=== PATIENT | female | born 1970 | race Caucasian/White ===

== ENCOUNTER 2021-02-19 16:08 | Observation (INO) ==
[2021-02-19] MEDS ORDERED: Aspirin 81 MG TAB.CHEW PO ONE (16:16)
[2021-02-19] MEDS ORDERED: Ondansetron 4 MG/2 ML VIAL IVP ONE (16:34)
[2021-02-19] MEDS ORDERED: Morphine Sulfate 2 MG/ML SYRINGE IVP ONE (16:34)
[2021-02-19 16:44] LABS: Bilirubin,Urine Negative (Negative); Blood,Urine Negative (Negative); Clarity,Urine Clear (Clear); Color,Urine Colorless (Yellow); Glucose,Urine (UA) Normal (Normal); Ketones,Urine Negative (Negative); Leukocyte Esterase,Urine Negative (Negative); Nitrite,Urine Negative (Negative); PH,Urine 6.5 pH Units (5.0-8.0); Protein,Urine Negative (Neg-Trace); Specific Gravity,Urine < 1.005 (1.010-1.025); Urobilinogen,Urine Normal (Normal)
[2021-02-19 17:31] LABS: Basophils # 0.1 K/mcL (0.0-0.2); Basophils % 0.8 %; Eosinophils # 0.2 K/mcL (0.0-0.6); Eosinophils % 1.6 %; Hematocrit 40.6 % (35.3-44.9); Hemoglobin 13.3 g/dL (11.5-15.4); Immature Granulocytes % 0.3 % (0-4); Lymphocytes # 2.4 K/mcL (0.6-4.6); Lymphocytes % 25.4 %; Mean Corpuscular HGB Conc 32.8 g/dL (31.6-35.5); Mean Corpuscular Hemoglobin 32.7 pg (28.0-33.3); Mean Corpuscular Volume 99.8 fL (83.0-100.0); Mean Platelet Volume 10.5 fL (9.4-12.4); Monocytes # 0.5 K/mcL (0.0-1.3); Monocytes % 5.3 %; Neutrophils # 6.2 K/mcL (1.6-8.9); Platelet Count 243 K/mcL (140-400); Red Blood Count 4.07 M/mcL (3.82-4.97); Red Cell Distribution Width 13.5 % (11.5-14.5); Segmented Neutrophils % 66.6 %; White Blood Count 9.3 K/mcL (4.3-11.1)
[2021-02-19 17:41] LABS: BUN/Creatinine Ratio 13 (6-26); Blood Urea Nitrogen 9 mg/dL (6-20); Calcium 8.7 mg/dL (8.6-10.3); Carbon Dioxide 29 mEq/L (23-29); Chloride 100 mEq/L (98-107); Glucose 84 mg/dL (70-105); Osmolality,Calculated 284 (280-300); Sodium 138 mEq/L (136-145); eGFR For African Americans > 60 (> 60); eGFR For Non-African Americans > 60 (> 60)
[2021-02-19 17:42] LABS: Troponin I < 0.03 ng/mL (< 0.04)
[2021-02-19] MEDS ORDERED: Isovue-370 500 ML BOTTLE IVP ONE (17:56)
[2021-02-19] MEDS ORDERED: Nitroglycerin 0.4 MG TAB.SUBL SL PRN (21:24)
[2021-02-20] MEDS ORDERED: Melatonin 3 MG TABLET PO PRN (01:42)
[2021-02-20] MEDS ORDERED: Naloxone 0.4 MG/ML INJ IVP PRN (01:42)
[2021-02-20] MEDS ORDERED: Nitroglycerin 0.4 MG TAB.SUBL SL PRN (04:20)
[2021-02-20] MEDS ORDERED: Perflutren Lipid Microsphere 1.3 ML in 0.9 % Sodium Chloride 8.7 ML IVP PRN (04:23)
[2021-02-20] MEDS: Aspirin 81 MG TAB.CHEW PO SCH (08:39)
[2021-02-20 10:14] LABS: Chol/HDL Ratio 3.6 (0-4.9)
[2021-02-20 11:13] LABS: Estimated Average Glucose 114 mg/dl; Hemoglobin A1C 5.6 %
[2021-02-20] MEDS ORDERED: Acetaminophen 325 MG TABLET PO ONE (11:16)
[2021-02-20] MEDS ORDERED: Cholestyramine 4 GM POWD.PACK PO PRN (12:49)
[2021-02-20] MEDS: Sucralfate 1 GM TABLET PO SCH ×3 (15:14→19:58)
[2021-02-20] MEDS: Ranolazine 500 MG TAB.ER.12H PO SCH ×2 (15:14→19:58)
[2021-02-20] MEDS ORDERED: CARVEDILOL 3.125 MG PO SCH (17:00)
[2021-02-20] MEDS ORDERED: carvediloL 6.25 MG TABLET PO SCH (17:00)
[2021-02-20] MEDS: Ondansetron 4 MG/2 ML VIAL IVP PRN (17:35)
[2021-02-20] MEDS: Pregabalin 75 MG CAPSULE PO SCH (19:58)
[2021-02-20] MEDS: Morphine Sulfate 2 MG/ML SYRINGE IVP PRN (20:01)
[2021-02-20] MEDS: Budesonide/Formoterol 160/4.5 1 PUFF INH IH SCH (20:13)
[2021-02-20] MEDS ORDERED: (Cariprazine Hcl [Vraylar] 3 MG Capsule) PO SCH (21:00)
[2021-02-21] MEDS: Ondansetron 4 MG/2 ML VIAL IVP PRN ×2 (01:35→09:18)
[2021-02-21] MEDS: Morphine Sulfate 2 MG/ML SYRINGE IVP PRN ×2 (01:36→11:00)
[2021-02-21] MEDS ORDERED: Regadenoson 0.4 MG/5 ML SYRINGE IVP ONE (06:28)
[2021-02-21] MEDS ORDERED: NON-FORMULARY MEDICATION 1 EACH EACH (Duloxetine Hcl [Cymbalta] 60 MG Capsule.Dr) PO SCH (09:00)
[2021-02-21] MEDS ORDERED: Isosorbide MONOnitrate (24 HR) 30 MG TAB.ER.24H PO SCH (09:00)
[2021-02-21] MEDS: Aspirin 81 MG TAB.CHEW PO SCH (09:15)
[2021-02-21] MEDS: Ranolazine 500 MG TAB.ER.12H PO SCH (09:16)
[2021-02-21] MEDS: Pregabalin 75 MG CAPSULE PO SCH (09:16)
[2021-02-21] MEDS: Sucralfate 1 GM TABLET PO SCH (09:16)
[2021-02-21] MEDS ORDERED: Tiotropium 10 INH DOSE IH SCH (10:00)
[2021-02-21] MEDS: Budesonide/Formoterol 160/4.5 1 PUFF INH IH SCH (10:43)
[2021-02-21 11:00] VITALS: BP 101/69
== END 2021-02-21 13:07 | disposition home or self-care (01) ==
LOC: 3BNU 16:08 → EMEROOARM 16:08 → SUATTDRO 02-20 00:55 → 3BNU 02-20 01:47
PROVIDERS: ADMIT Family Medicine; ATTEND Internal Medicine

== ENCOUNTER 2021-02-25 21:20 | Observation (INO) ==
[2021-02-25 23:06] LABS: Basophils # 0.1 K/mcL (0.0-0.2); Basophils % 0.7 %; Eosinophils # 0.2 K/mcL (0.0-0.6); Eosinophils % 2.2 %; Hematocrit 37.9 % (35.3-44.9); Hemoglobin 12.3 g/dL (11.5-15.4); Immature Granulocytes % 0.4 % (0-4); Lymphocytes # 2.5 K/mcL (0.6-4.6); Lymphocytes % 35.9 %; Mean Corpuscular HGB Conc 32.5 g/dL (31.6-35.5); Mean Corpuscular Hemoglobin 32.5 pg (28.0-33.3); Mean Platelet Volume 10.3 fL (9.4-12.4); Monocytes # 0.5 K/mcL (0.0-1.3); Monocytes % 7.4 %; Neutrophils # 3.7 K/mcL (1.6-8.9); Platelet Count 206 K/mcL (140-400); Red Blood Count 3.79 M/mcL (3.82-4.97); Segmented Neutrophils % 53.4 %; White Blood Count 6.9 K/mcL (4.3-11.1)
[2021-02-25 23:22] LABS: BUN/Creatinine Ratio 13 (6-26); Blood Urea Nitrogen 7 mg/dL (6-20); Calcium 8.5 mg/dL (8.6-10.3); Carbon Dioxide 27 mEq/L (23-29); Chloride 103 mEq/L (98-107); Glucose 97 mg/dL (70-105); Osmolality,Calculated 284 (280-300); Potassium 3.7 mEq/L (3.5-5.1); Sodium 138 mEq/L (136-145); eGFR For African Americans > 60 (> 60); eGFR For Non-African Americans > 60 (> 60)
[2021-02-25 23:23] LABS: Troponin I < 0.03 ng/mL (< 0.04)
[2021-02-25] MEDS ORDERED: Aspirin 81 MG TAB.CHEW PO ONE ×2 (23:27→23:45)
[2021-02-26] MEDS ORDERED: *HR* FentaNYL (PF) 100 MCG/2 ML VIAL IVP ONE (00:37)
[2021-02-26 00:51] LABS: Adenovirus Not Detected (Not Detect); Coronavirus 229E Not Detected (Not Detect); Coronavirus HKU1 Not Detected (Not Detect); Coronavirus NL63 Not Detected (Not Detect); Coronavirus OC43 Not Detected (Not Detect)
[2021-02-26 00:52] LABS: Bordetella Pertussis Not Detected (Not Detect); Chlamydophila pneumoniae Not Detected (Not Detect); Human Metapneumovirus Not Detected (Not Detect); Human Rhinovirus/Enterovirus Not Detected (Not Detect); Influenza A Subtype 2009 H1 Not Detected (Not Detect); Influenza B Not Detected (Not Detect); Mycoplasma pneumoniae Not Detected (Not Detect); Parainfluenza Virus 1 Not Detected (Not Detect); Parainfluenza Virus 2 Not Detected (Not Detect); Parainfluenza Virus 3 Not Detected (Not Detect); Parainfluenza Virus 4 Not Detected (Not Detect); Respiratory Syncytial Virus Not Detected (Not Detect); SARS-CoV-2 Not Detected (Not Detect)
[2021-02-26 03:10] LABS: Thyroid Stimulating Hormone 1.443 mcIU/mL (0.340-5.600)
[2021-02-26] MEDS ORDERED: Naloxone 0.4 MG/ML INJ IVP PRN (03:22)
[2021-02-26] MEDS ORDERED: Morphine Sulfate 2 MG/ML SYRINGE IVP PRN (03:25)
[2021-02-26] MEDS ORDERED: Nitroglycerin 0.4 MG TAB.SUBL SL PRN (03:25)
[2021-02-26] MEDS ORDERED: Calcium Gluconate 1gm/50mL 1 GM/50 ML BAG IVPB ONE (04:28)
[2021-02-26] MEDS: *HR* Heparin 5,000 UNIT/ML VIAL SQ SCH ×3 (05:59→20:31)
[2021-02-26 06:05] LABS: Estimated Average Glucose 111 mg/dl; Hemoglobin A1C 5.5 %; Mean Corpuscular HGB Conc 31.6 g/dL (31.6-35.5); Mean Corpuscular Hemoglobin 31.7 pg (28.0-33.3); Mean Corpuscular Volume 100.5 fL (83.0-100.0); Mean Platelet Volume 10.3 fL (9.4-12.4); Platelet Count 219 K/mcL (140-400); Red Blood Count 3.78 M/mcL (3.82-4.97); Red Cell Distribution Width 13.2 % (11.5-14.5); White Blood Count 6.1 K/mcL (4.3-11.1)
[2021-02-26 06:14] LABS: Prothrombin Time 11.2 Seconds (9.4-12.1)
[2021-02-26 06:17] LABS: Activated Partial Thrombo Time 28.2 Seconds (26.0-36.0)
[2021-02-26 06:28] LABS: BUN/Creatinine Ratio 14 (6-26); Blood Urea Nitrogen 8 mg/dL (6-20); Calcium 8.7 mg/dL (8.6-10.3); Carbon Dioxide 31 mEq/L (23-29); Chloride 105 mEq/L (98-107); Chol/HDL Ratio 3.6 (0-4.9); Cholesterol 200 mg/dL (< 200); Glucose 100 mg/dL (70-105); HDL Cholesterol 55 mg/dL (40-59); LDL Cholesterol,Calculated 123 mg/dL (< 100); Magnesium 1.8 mg/dL (1.6-2.6); Osmolality,Calculated 290 (280-300); Sodium 141 mEq/L (136-145); Triglycerides 108 mg/dL (< 150); eGFR For African Americans > 60 (> 60); eGFR For Non-African Americans > 60 (> 60)
[2021-02-26] MEDS: Aspirin Enteric Coated 81 MG Tablet PO SCH ×2 (07:43→08:34)
[2021-02-26] MEDS: Isosorbide MONOnitrate (24 HR) 30 MG TAB.ER.24H PO SCH (10:53)
[2021-02-26] MEDS ORDERED: Morphine Sulfate 2 MG/ML SYRINGE IVP ONE (15:48)
[2021-02-26] MEDS ORDERED: Cholestyramine 4 GM POWD.PACK PO PRN (17:58)
[2021-02-26] MEDS ORDERED: Ipratropium/Albuterol Neb 3 ML IH PRN (17:58)
[2021-02-26] MEDS: Sucralfate 1 GM TABLET PO SCH (20:30)
[2021-02-26] MEDS: Pregabalin 75 MG CAPSULE PO SCH (20:30)
[2021-02-26] MEDS: Ondansetron 4 MG/2 ML VIAL IVP PRN (20:34)
[2021-02-26] MEDS: Acetaminophen 325 MG TABLET PO PRN (20:34)
[2021-02-26] MEDS ORDERED: (Cariprazine Hcl [Vraylar] 3 MG Capsule) PO SCH (21:00)
[2021-02-26] MEDS ORDERED: Latanoprost 2.5 ML BOTTLE BOTH EYES SCH (21:00)
[2021-02-26] MEDS: Budesonide/Formoterol 160/4.5 1 PUFF INH IH SCH (21:09)
[2021-02-27 02:44] LABS: Hematocrit 40.4 % (35.3-44.9); Hemoglobin 12.8 g/dL (11.5-15.4); Mean Corpuscular HGB Conc 31.7 g/dL (31.6-35.5); Mean Corpuscular Hemoglobin 31.9 pg (28.0-33.3); Mean Corpuscular Volume 100.7 fL (83.0-100.0); Mean Platelet Volume 10.2 fL (9.4-12.4); Platelet Count 211 K/mcL (140-400); Red Blood Count 4.01 M/mcL (3.82-4.97); Red Cell Distribution Width 13.6 % (11.5-14.5); White Blood Count 5.5 K/mcL (4.3-11.1)
[2021-02-27 03:05] LABS: BUN/Creatinine Ratio 18 (6-26); Blood Urea Nitrogen 10 mg/dL (6-20); Carbon Dioxide 31 mEq/L (23-29); Chloride 102 mEq/L (98-107); Glucose 99 mg/dL (70-105); Osmolality,Calculated 289 (280-300); Potassium 3.9 mEq/L (3.5-5.1); Sodium 140 mEq/L (136-145); eGFR For African Americans > 60 (> 60); eGFR For Non-African Americans > 60 (> 60)
[2021-02-27] MEDS: *HR* Heparin 5,000 UNIT/ML VIAL SQ SCH (05:39)
[2021-02-27] MEDS: Ondansetron 4 MG/2 ML VIAL IVP PRN ×2 (06:14→12:52)
[2021-02-27] MEDS ORDERED: Tiotropium 10 INH DOSE IH ONE (07:33)
[2021-02-27] MEDS: Budesonide/Formoterol 160/4.5 1 PUFF INH IH SCH (07:44)
[2021-02-27] MEDS ORDERED: Multivit/Ca/Min/Fe/FA 1 TAB TABLET PO SCH (09:00)
[2021-02-27] MEDS ORDERED: NON-FORMULARY MEDICATION 1 EACH EACH (Duloxetine Hcl [Cymbalta] 60 MG Capsule.Dr) PO SCH (09:00)
[2021-02-27] MEDS ORDERED: Tiotropium 10 INH DOSE IH SCH (10:00)
[2021-02-27 10:14] VITALS: BP 94/67; O2SAT 97
[2021-02-27] MEDS: Pregabalin 75 MG CAPSULE PO SCH (10:18)
[2021-02-27] MEDS: Sucralfate 1 GM TABLET PO SCH ×2 (10:18→12:52)
[2021-02-27] MEDS: Aspirin Enteric Coated 81 MG Tablet PO SCH (10:19)
[2021-02-27] MEDS: Acetaminophen 325 MG TABLET PO PRN (10:19)
[2021-02-27] MEDS: Isosorbide MONOnitrate (24 HR) 30 MG TAB.ER.24H PO SCH (10:19)
[2021-02-27 15:14] VITALS: PULSE 95; TEMP 97.7
== END 2021-02-27 16:06 | disposition home or self-care (01) ==
LOC: EMEROOARM 21:20 → 2NENU 21:20 → SUATTDRO 02-26 01:28 → 2NENU 02-26 02:00
PROVIDERS: ADMIT Internal Medicine; ATTEND Family Medicine

== ENCOUNTER 2021-12-13 22:01 | Observation (INO) ==
[2021-12-13] MEDS ORDERED: Ondansetron 4 MG/2 ML VIAL IVP ONE (22:23)
[2021-12-13] MEDS ORDERED: Aspirin 81 MG TAB.CHEW PO ONE (22:23)
[2021-12-13] MEDS ORDERED: *HR* FentaNYL (PF) 100 MCG/2 ML VIAL IVP ONE (22:24)
[2021-12-13] MEDS ORDERED: *HR* Ticagrelor 90 MG TABLET PO ONE (22:38)
[2021-12-13] MEDS ORDERED: *HR* Heparin 5,000 UNIT/ML VIAL IVP ONE (22:38)
[2021-12-13] MEDS ORDERED: *HR* Heparin 5,000 UNIT/ML VIAL IVP PRN ×2 (22:38)
[2021-12-13 22:40] LABS: Basophils # 0.1 K/mcL (0.0-0.2); Basophils % 0.8 %; Eosinophils # 0.1 K/mcL (0.0-0.6); Eosinophils % 2.2 %; Hemoglobin 12.7 g/dL (11.5-15.4); Immature Granulocytes % 0.2 % (0-4); Lymphocytes # 2.3 K/mcL (0.6-4.6); Lymphocytes % 38.4 %; Mean Corpuscular HGB Conc 33.4 g/dL (31.6-35.5); Mean Corpuscular Hemoglobin 31.7 pg (28.0-33.3); Mean Corpuscular Volume 94.8 fL (83.0-100.0); Mean Platelet Volume 11.2 fL (9.4-12.4); Monocytes # 0.5 K/mcL (0.0-1.3); Monocytes % 8.3 %; Platelet Count 216 K/mcL (140-400); Red Blood Count 4.01 M/mcL (3.82-4.97); Red Cell Distribution Width 12.7 % (11.5-14.5); Segmented Neutrophils % 50.1 %
[2021-12-13] MEDS ORDERED: Heparin 25,000UNIT/250ML 1/2NS 25,000 UNIT/250 ML IV.SOLN IVC SCH (22:45)
[2021-12-13 22:52] LABS: Prothrombin Time 11.1 Seconds (9.4-12.1)
[2021-12-13 22:54] LABS: Activated Partial Thrombo Time 32.1 Seconds (26.0-36.0)
[2021-12-13] MEDS ORDERED: *HR* Heparin 10,000 UNIT/10 ML VIAL ONE (22:59)
[2021-12-13] MEDS ORDERED: ISOVUE-370 200 ML INFUS..BTL ONE (22:59)
[2021-12-13] MEDS ORDERED: Nitroglycerin 1,000 MCG/5 ML VIAL IV ONE (22:59)
[2021-12-13] MEDS ORDERED: Heparin 1,000 UNITS/500 mL 500 ML ONE (22:59)
[2021-12-13] MEDS ORDERED: 0.9 % Sodium Chloride 1,000 ML ONE ×2 (22:59→23:04)
[2021-12-13 23:02] LABS: BUN/Creatinine Ratio 11 (6-26); Blood Urea Nitrogen 7 mg/dL (6-20); Calcium 9.3 mg/dL (8.6-10.3); Carbon Dioxide 30 mEq/L (23-29); Chloride 102 mEq/L (98-107); Glucose 97 mg/dL (70-105); Lipase 34 Units/L (11-82); Magnesium 1.5 mg/dL (1.6-2.6); Osmolality,Calculated 288 (280-300); Potassium 3.2 mEq/L (3.5-5.1); Sodium 140 mEq/L (136-145); eGFR For African Americans > 60 (> 60); eGFR For Non-African Americans > 60 (> 60)
[2021-12-13 23:03] LABS: Troponin I < 0.03 ng/mL (< 0.04)
[2021-12-13] MEDS ORDERED: *HR* Midazolam HCl 2 MG/2 ML VIAL ONE (23:03)
[2021-12-13] MEDS ORDERED: *HR* FentaNYL (PF) 100 MCG/2 ML VIAL ONE (23:03)
[2021-12-13] MEDS ORDERED: *HR* Bivalirudin 250 MG VIAL IVC ONE (23:03)
[2021-12-14] MEDS ORDERED: Acetaminophen 325 MG TABLET PO PRN (00:40)
[2021-12-14] MEDS ORDERED: Naloxone 0.4 MG/ML INJ IVP PRN (01:12)
[2021-12-14] MEDS ORDERED: Melatonin 3 MG TABLET PO PRN (01:12)
[2021-12-14] MEDS ORDERED: Ondansetron 4 MG/2 ML VIAL IVP PRN (01:12)
[2021-12-14] MEDS ORDERED: Albuterol 2.5 MG/3 ML NEBULIZER IH PRN (02:10)
[2021-12-14] MEDS ORDERED: Ipratropium/Albuterol Neb 3 ML IH SCH (05:00)
[2021-12-14] MEDS ORDERED: Magnesium Oxide 400 MG TABLET PO ONE (05:00)
[2021-12-14 05:14] LABS: Basophils % 0.7 %; Eosinophils # 0.1 K/mcL (0.0-0.6); Eosinophils % 2.2 %; Hematocrit 39.7 % (35.3-44.9); Lymphocytes # 1.6 K/mcL (0.6-4.6); Lymphocytes % 34.3 %; Mean Corpuscular HGB Conc 32.7 g/dL (31.6-35.5); Mean Corpuscular Hemoglobin 31.6 pg (28.0-33.3); Mean Corpuscular Volume 96.4 fL (83.0-100.0); Mean Platelet Volume 11.3 fL (9.4-12.4); Monocytes # 0.5 K/mcL (0.0-1.3); Neutrophils # 2.4 K/mcL (1.6-8.9); Platelet Count 208 K/mcL (140-400); Red Blood Count 4.12 M/mcL (3.82-4.97); Red Cell Distribution Width 12.7 % (11.5-14.5); Segmented Neutrophils % 52.8 %; White Blood Count 4.6 K/mcL (4.3-11.1)
[2021-12-14 05:46] LABS: Magnesium 1.6 mg/dL (1.6-2.6); Phosphorous 5.2 mg/dL (2.7-4.5)
[2021-12-14 05:48] LABS: Alanine Aminotransferase 21 Units/L (7-52); Albumin 3.8 g/dL (3.5-5.7); Albumin/Globulin Ratio 1.5 (1.1-2.2); Alkaline Phosphatase 71 Units/L (34-104); Aspartate Amino Transferase 21 Units/L (13-39); BUN/Creatinine Ratio 11 (6-26); Bilirubin,Total 0.5 mg/dL (0.3-1.0); Blood Urea Nitrogen 8 mg/dL (6-20); Calcium 9.4 mg/dL (8.6-10.3); Carbon Dioxide 31 mEq/L (23-29); Chloride 104 mEq/L (98-107); Globulin 2.6 g/dL (2.4-3.5); Glucose 91 mg/dL (70-105); Osmolality,Calculated 290 (280-300); Potassium 3.6 mEq/L (3.5-5.1); Sodium 141 mEq/L (136-145); Total Protein 6.4 g/dL (6.4-8.9); eGFR For African Americans > 60 (> 60); eGFR For Non-African Americans > 60 (> 60)
[2021-12-14 06:42] VITALS: BP 112/83; PULSE 92; TEMP 97.9; O2SAT 91
[2021-12-14] MEDS ORDERED: predniSONE 20 MG TABLET PO SCH (09:00)
== END 2021-12-14 10:20 | disposition home or self-care (01) ==
LOC: EMEROOARM 22:01 → 2NENU 22:01 → SUATTDRO 12-14 00:08
PROVIDERS: ADMIT Family Medicine; ATTEND Internal Medicine

== ENCOUNTER 2022-03-09 19:21 | Observation (INO) ==
[2022-03-10] MEDS ORDERED: Iopamidol - 370 500 ML MLS IVP ONE (03:57)
[2022-03-10] MEDS ORDERED: Acetaminophen 325 MG TABLET PO ONE (04:28)
[2022-03-10 04:45] LABS: Basophils # 0.1 K/mcL (0.0-0.2); Basophils % 0.7 %; Eosinophils # 0.1 K/mcL (0.0-0.6); Eosinophils % 1.9 %; Hemoglobin 12.9 g/dL (11.5-15.4); Immature Granulocytes % 0.4 % (0-4); Lymphocytes # 1.6 K/mcL (0.6-4.6); Lymphocytes % 21.9 %; Mean Corpuscular HGB Conc 33.1 g/dL (31.6-35.5); Mean Corpuscular Hemoglobin 31.9 pg (28.0-33.3); Mean Corpuscular Volume 96.3 fL (83.0-100.0); Mean Platelet Volume 10.4 fL (9.4-12.4); Monocytes # 0.4 K/mcL (0.0-1.3); Monocytes % 5.9 %; Neutrophils # 5.2 K/mcL (1.6-8.9); Platelet Count 220 K/mcL (140-400); Red Blood Count 4.05 M/mcL (3.82-4.97); Red Cell Distribution Width 13.2 % (11.5-14.5); Segmented Neutrophils % 69.2 %; White Blood Count 7.4 K/mcL (4.3-11.1)
[2022-03-10 05:01] LABS: BUN/Creatinine Ratio 15 (6-26); Blood Urea Nitrogen 9 mg/dL (6-20); Calcium 8.9 mg/dL (8.6-10.3); Carbon Dioxide 32 mEq/L (23-29); Chloride 101 mEq/L (98-107); Glucose 99 mg/dL (70-105); Osmolality,Calculated 289 (280-300); Potassium 3.3 mEq/L (3.5-5.1); Sodium 140 mEq/L (136-145); eGFR For African Americans > 60 (> 60); eGFR For Non-African Americans > 60 (> 60)
[2022-03-10] MEDS ORDERED: Piperacillin/Tazobactam 3.375 GM in 0.9 % Sodium Chloride Mini Bag 100 ML IVPB ONE (08:06)
[2022-03-10] MEDS ORDERED: Vancomycin 1,500 MG/265 ML IV.SOLN IVPB ONE (09:00)
[2022-03-10] MEDS ORDERED: Morphine Sulfate 2 MG/ML SYRINGE IVP STA (09:09)
[2022-03-10] MEDS ORDERED: *HR* HYDROcodone/Acet 5/325 mg TABLET PO PRN (09:51)
[2022-03-10] MEDS ORDERED: Naloxone 0.4 MG/ML INJ IVP PRN ×2 (09:51→16:56)
[2022-03-10] MEDS ORDERED: *HR* OxyCODONE Immed Rel 5 MG TABLET PO PRN ×2 (09:51→14:40)
[2022-03-10] MEDS ORDERED: Ondansetron 4 MG/2 ML VIAL IVP PRN ×3 (09:51→16:56)
[2022-03-10] MEDS ORDERED: Melatonin 3 MG TABLET PO PRN ×2 (09:51→16:56)
[2022-03-10] MEDS ORDERED: Acetaminophen 325 MG TABLET PO PRN (09:51)
[2022-03-10] MEDS ORDERED: diazePAM 5 MG TABLET PO PRN ×2 (13:38→16:56)
[2022-03-10] MEDS ORDERED: Ipratropium/Albuterol Neb 3 ML IH PRN ×2 (13:38→16:56)
[2022-03-10] MEDS ORDERED: Scopolamine Patch 1.5 MG PATCH.TD72 ONE (14:34)
[2022-03-10] MEDS ORDERED: *HR* Propofol 200 MG/20 ML VIAL IVP ONE (14:38)
[2022-03-10] MEDS ORDERED: *HR* FentaNYL (PF) 100 MCG/2 ML VIAL ONE ×2 (14:38→15:35)
[2022-03-10] MEDS ORDERED: *HR* Midazolam HCl 2 MG/2 ML VIAL ONE (14:38)
[2022-03-10] MEDS ORDERED: Ondansetron 4 MG/2 ML VIAL ONE (14:38)
[2022-03-10] MEDS ORDERED: *HR* Labetalol 20 MG/4 ML SYRINGE IVP PRN (14:40)
[2022-03-10] MEDS ORDERED: *HR* Meperidine 25 MG/ML SYRINGE IVP PRN (14:40)
[2022-03-10] MEDS ORDERED: *HR* HYDROmorphone PF 0.5 MG/0.5 ML SYRINGE IVP PRN (14:40)
[2022-03-10] MEDS ORDERED: Albuterol 2.5 MG/3 ML NEBULIZER IH PRN (14:40)
[2022-03-10] MEDS ORDERED: *HR* FentaNYL (PF) 100 MCG/2 ML VIAL IVP PRN (14:40)
[2022-03-10] MEDS ORDERED: Ipratropium Neb 0.5 MG NEBULIZER IH PRN (14:40)
[2022-03-10] MEDS ORDERED: Lidocaine -MPF 2% 5 ML VIAL ONE (14:40)
[2022-03-10] MEDS ORDERED: Piperacillin/Tazobactam 3.375 GM in 0.9 % Sodium Chloride Mini Bag 100 ML IVPB SCH (16:00)
[2022-03-10] MEDS: Acetaminophen 325 MG TABLET PO PRN (18:48)
[2022-03-10] MEDS: *HR* HYDROcodone/Acet 5/325 mg TABLET PO PRN (19:45)
[2022-03-10] MEDS: Vancomycin 1,500 MG/265 ML IV.SOLN IVPB SCH (20:28)
[2022-03-10] MEDS ORDERED: Vancomycin 1,500 MG/265 ML IV.SOLN IVPB SCH (21:00)
[2022-03-10] MEDS ORDERED: Latanoprost 2.5 ML BOTTLE BOTH EYES SCH (21:00)
[2022-03-10] MEDS: Latanoprost 2.5 ML BOTTLE BOTH EYES SCH (21:25)
[2022-03-10] MEDS: *HR* OxyCODONE Immed Rel 5 MG TABLET PO PRN (22:39)
[2022-03-10] MEDS: PARoxetine 20 MG TABLET PO SCH (22:40)
[2022-03-11 01:40] LABS: Basophils % 0.2 %; Hematocrit 36.9 % (35.3-44.9); Immature Granulocytes % 0.3 % (0-4); Lymphocytes # 0.4 K/mcL (0.6-4.6); Mean Corpuscular HGB Conc 32.5 g/dL (31.6-35.5); Mean Corpuscular Hemoglobin 31.3 pg (28.0-33.3); Mean Corpuscular Volume 96.3 fL (83.0-100.0); Mean Platelet Volume 10.4 fL (9.4-12.4); Monocytes % 0.7 %; Neutrophils # 5.6 K/mcL (1.6-8.9); Platelet Count 223 K/mcL (140-400); Red Blood Count 3.83 M/mcL (3.82-4.97); Red Cell Distribution Width 13.1 % (11.5-14.5); Segmented Neutrophils % 92.8 %
[2022-03-11] MEDS: *HR* HYDROcodone/Acet 5/325 mg TABLET PO PRN ×3 (01:50→22:15)
[2022-03-11 01:57] LABS: BUN/Creatinine Ratio 15 (6-26); Blood Urea Nitrogen 10 mg/dL (6-20); Calcium 8.6 mg/dL (8.6-10.3); Carbon Dioxide 30 mEq/L (23-29); Chloride 99 mEq/L (98-107); Glucose 204 mg/dL (70-105); Osmolality,Calculated 289 (280-300); Potassium 3.5 mEq/L (3.5-5.1); Sodium 137 mEq/L (136-145); eGFR For African Americans > 60 (> 60); eGFR For Non-African Americans > 60 (> 60)
[2022-03-11] MEDS: Acetaminophen 325 MG TABLET PO PRN ×2 (05:03→16:11)
[2022-03-11] MEDS: *HR* OxyCODONE Immed Rel 5 MG TABLET PO PRN ×2 (07:48→16:11)
[2022-03-11] MEDS: Aspirin 81 MG TAB.CHEW PO SCH (07:49)
[2022-03-11] MEDS: Piperacillin/Tazobactam 3.375 GM in 0.9 % Sodium Chloride Mini Bag 100 ML IVPB SCH ×4 (07:49→23:12)
[2022-03-11] MEDS ORDERED: Fluticasone Propionate Nasal 50 MCG/SPRAY BOTTLE NS SCH (09:00)
[2022-03-11] MEDS ORDERED: CARIPRAZINE HCL 1.5 MG PO SCH (09:00)
[2022-03-11] MEDS ORDERED: Aspirin 81 MG TAB.CHEW PO SCH (09:00)
[2022-03-11] MEDS ORDERED: PARoxetine 20 MG TABLET PO SCH (09:00)
[2022-03-11] MEDS: Nicotine 14 MG PATCH.TD24 TD SCH (10:55)
[2022-03-11] MEDS: Morphine Sulfate 2 MG/ML SYRINGE IVP PRN ×2 (10:55→20:08)
[2022-03-11] MEDS: Vancomycin 1,500 MG/265 ML IV.SOLN IVPB SCH ×2 (12:15→21:33)
[2022-03-11] MEDS: Fluticasone Propionate Nasal 50 MCG/SPRAY BOTTLE NS SCH (17:46)
[2022-03-11] MEDS: PARoxetine 20 MG TABLET PO SCH (20:07)
[2022-03-11] MEDS: Latanoprost 2.5 ML BOTTLE BOTH EYES SCH (22:06)
[2022-03-12] MEDS: *HR* OxyCODONE Immed Rel 5 MG TABLET PO PRN ×2 (00:07→10:00)
[2022-03-12] MEDS: Morphine Sulfate 2 MG/ML SYRINGE IVP PRN (02:24)
[2022-03-12 03:47] VITALS: O2SAT 98
[2022-03-12 05:10] LABS: Basophils % 0.4 %; Eosinophils # 0.1 K/mcL (0.0-0.6); Eosinophils % 1.6 %; Hemoglobin 11.7 g/dL (11.5-15.4); Immature Granulocytes % 0.4 % (0-4); Immature Platelets 5.8 % (1.1-6.1); Lymphocytes % 25.3 %; Mean Corpuscular HGB Conc 32.5 g/dL (31.6-35.5); Mean Corpuscular Hemoglobin 31.8 pg (28.0-33.3); Mean Corpuscular Volume 97.8 fL (83.0-100.0); Mean Platelet Volume 10.8 fL (9.4-12.4); Monocytes # 0.5 K/mcL (0.0-1.3); Monocytes % 6.6 %; Neutrophils # 5.1 K/mcL (1.6-8.9); Platelet Count 211 K/mcL (140-400); Red Blood Count 3.68 M/mcL (3.82-4.97); Red Cell Distribution Width 13.5 % (11.5-14.5); Segmented Neutrophils % 65.7 %; White Blood Count 7.7 K/mcL (4.3-11.1)
[2022-03-12 05:23] LABS: BUN/Creatinine Ratio 8 (6-26); Blood Urea Nitrogen 6 mg/dL (6-20); Calcium 8.4 mg/dL (8.6-10.3); Carbon Dioxide 28 mEq/L (23-29); Chloride 104 mEq/L (98-107); Glucose 100 mg/dL (70-105); Magnesium 1.7 mg/dL (1.6-2.6); Osmolality,Calculated 290 (280-300); Sodium 141 mEq/L (136-145); eGFR For African Americans > 60 (> 60); eGFR For Non-African Americans > 60 (> 60)
[2022-03-12] MEDS: *HR* HYDROcodone/Acet 5/325 mg TABLET PO PRN ×2 (05:36→13:53)
[2022-03-12] MEDS: Aspirin 81 MG TAB.CHEW PO SCH (07:49)
[2022-03-12] MEDS: Piperacillin/Tazobactam 3.375 GM in 0.9 % Sodium Chloride Mini Bag 100 ML IVPB SCH ×2 (07:49→16:02)
[2022-03-12] MEDS: Fluticasone Propionate Nasal 50 MCG/SPRAY BOTTLE NS SCH (07:50)
[2022-03-12] MEDS: Nicotine 14 MG PATCH.TD24 TD SCH (07:50)
[2022-03-12] MEDS: Vancomycin 1,500 MG/265 ML IV.SOLN IVPB SCH (07:50)
[2022-03-12 11:52] LABS: Influenza A PCR Negative (Negative); Influenza B PCR Negative (Negative); Resp. Syncytial Virus PCR Negative (Negative)
[2022-03-12 11:53] LABS: SARS-CoV-2 by PCR (In House) Negative (Negative)
[2022-03-12] MEDS ORDERED: HydrOXYzine 100 MG/2 ML VIAL IM ONE (13:22)
[2022-03-12] MEDS ORDERED: Famotidine 20 MG/2 ML VIAL IVP ONE (13:23)
[2022-03-12] MEDS ORDERED: Doxycycline 100 MG CAPSULE PO SCH (13:30)
[2022-03-12 15:28] VITALS: BP 132/78; PULSE 78; TEMP 98
== END 2022-03-12 16:56 | disposition home or self-care (01) ==
LOC: EMEROOARM 19:21 → 4WAOSI 19:21 → SUATTDRO 03-10 13:09 → 4WAOSI 03-10 13:23
PROVIDERS: ADMIT Internal Medicine; ATTEND Pharmacist

== ENCOUNTER 2022-03-21 20:05 | Observation (INO) ==
[2022-03-21] MEDS ORDERED: 0.9 % Sodium Chloride 1,000 ML IV ONE (21:12)
[2022-03-21] MEDS ORDERED: Morphine Sulfate 2 MG/ML SYRINGE IVP ONE (21:13)
[2022-03-21] MEDS ORDERED: Ketorolac 30 MG/ML VIAL IVP ONE (21:13)
[2022-03-21 21:42] LABS: Basophils # 0.1 K/mcL (0.0-0.2); Eosinophils # 0.2 K/mcL (0.0-0.6); Eosinophils % 2.6 %; Hematocrit 41.3 % (35.3-44.9); Hemoglobin 13.8 g/dL (11.5-15.4); Immature Granulocytes % 0.6 % (0-4); Immature Platelets 8.5 % (1.1-6.1); Lymphocytes # 2.2 K/mcL (0.6-4.6); Lymphocytes % 31.6 %; Mean Corpuscular HGB Conc 33.4 g/dL (31.6-35.5); Mean Corpuscular Hemoglobin 31.7 pg (28.0-33.3); Mean Corpuscular Volume 94.9 fL (83.0-100.0); Mean Platelet Volume 10.7 fL (9.4-12.4); Monocytes # 0.6 K/mcL (0.0-1.3); Monocytes % 8.8 %; Neutrophils # 3.9 K/mcL (1.6-8.9); Platelet Count 288 K/mcL (140-400); Red Blood Count 4.35 M/mcL (3.82-4.97); Segmented Neutrophils % 55.4 %
[2022-03-21] MEDS ORDERED: Acetaminophen 325 MG TABLET PO ONE (21:50)
[2022-03-21 22:00] LABS: BUN/Creatinine Ratio 6 (6-26); Blood Urea Nitrogen 4 mg/dL (6-20); Calcium 9.1 mg/dL (8.6-10.3); Carbon Dioxide 27 mEq/L (23-29); Chloride 102 mEq/L (98-107); Glucose 89 mg/dL (70-105); Osmolality,Calculated 280 (280-300); Potassium 3.8 mEq/L (3.5-5.1); Sodium 137 mEq/L (136-145); eGFR For African Americans > 60 (> 60); eGFR For Non-African Americans > 60 (> 60)
[2022-03-22] MEDS ORDERED: Vancomycin 2,000 MG/520 ML IV.SOLN IVPB ONE (00:27)
[2022-03-22] MEDS ORDERED: CeFAZolin 2,000 MG/120 ML BAG IVPB ONE (01:00)
[2022-03-22] MEDS ORDERED: Acetaminophen 325 MG TABLET PO PRN ×2 (01:50→06:53)
[2022-03-22] MEDS ORDERED: Naloxone 0.4 MG/ML INJ IVP PRN (01:50)
[2022-03-22] MEDS ORDERED: Melatonin 3 MG TABLET PO PRN (01:50)
[2022-03-22] MEDS ORDERED: *HR* HYDROcodone/Acet 5/325 mg TABLET PO PRN (01:50)
[2022-03-22] MEDS ORDERED: Ketorolac 30 MG/ML VIAL IVP PRN (02:03)
[2022-03-22] MEDS ORDERED: Ondansetron ODT 4 MG TAB.RAPDIS SL PRN (02:13)
[2022-03-22] MEDS ORDERED: Acetaminophen IV 1,000 MG/100 ML BAG IVPB ONE (09:19)
[2022-03-22] MEDS: Piperacillin/Tazobactam 3.375 GM in 0.9 % Sodium Chloride Mini Bag 100 ML IVPB SCH ×3 (09:44→23:08)
[2022-03-22 11:58] LABS: Basophils % 0.4 %; Eosinophils # 0.1 K/mcL (0.0-0.6); Hematocrit 38.8 % (35.3-44.9); Hemoglobin 12.3 g/dL (11.5-15.4); Immature Granulocytes % 0.6 % (0-4); Lymphocytes # 1.1 K/mcL (0.6-4.6); Lymphocytes % 24.2 %; Mean Corpuscular HGB Conc 31.7 g/dL (31.6-35.5); Mean Corpuscular Hemoglobin 31.1 pg (28.0-33.3); Mean Platelet Volume 10.7 fL (9.4-12.4); Monocytes # 0.5 K/mcL (0.0-1.3); Monocytes % 11.2 %; Neutrophils # 2.8 K/mcL (1.6-8.9); Platelet Count 208 K/mcL (140-400); Red Blood Count 3.96 M/mcL (3.82-4.97); Red Cell Distribution Width 13.3 % (11.5-14.5); Segmented Neutrophils % 60.6 %; White Blood Count 4.6 K/mcL (4.3-11.1)
[2022-03-22 12:08] LABS: INR 1.1; Prothrombin Time 11.9 Seconds (9.4-12.1)
[2022-03-22 12:11] LABS: Activated Partial Thrombo Time 30.7 Seconds (26.0-36.0)
[2022-03-22 12:18] LABS: BUN/Creatinine Ratio 8 (6-26); Blood Urea Nitrogen 5 mg/dL (6-20); Carbon Dioxide 26 mEq/L (23-29); Chloride 104 mEq/L (98-107); Glucose 94 mg/dL (70-105); Magnesium 1.4 mg/dL (1.6-2.6); Osmolality,Calculated 279 (280-300); Phosphorous 3.8 mg/dL (2.7-4.5); Potassium 3.9 mEq/L (3.5-5.1); Sodium 136 mEq/L (136-145); eGFR For African Americans > 60 (> 60); eGFR For Non-African Americans > 60 (> 60)
[2022-03-22] MEDS ORDERED: Ipratropium/Albuterol Neb 3 ML IH PRN (13:30)
[2022-03-22] MEDS: Magnesium Oxide 400 MG TABLET PO SCH (13:55)
[2022-03-22] MEDS: Vancomycin 1,500 MG/265 ML IV.SOLN IVPB SCH (17:05)
[2022-03-22] MEDS: *HR* HYDROcodone/Acet 5/325 mg TABLET PO PRN ×2 (17:06→23:08)
[2022-03-22] MEDS: Acetaminophen 325 MG TABLET PO PRN (19:37)
[2022-03-23] MEDS: Acetaminophen 325 MG TABLET PO PRN (02:36)
[2022-03-23] MEDS: Vancomycin 1,500 MG/265 ML IV.SOLN IVPB SCH (02:36)
[2022-03-23 06:11] LABS: BUN/Creatinine Ratio 7 (6-26); Blood Urea Nitrogen 5 mg/dL (6-20); Calcium 8.1 mg/dL (8.6-10.3); Carbon Dioxide 31 mEq/L (23-29); Chloride 106 mEq/L (98-107); Glucose 96 mg/dL (70-105); Osmolality,Calculated 289 (280-300); Potassium 3.9 mEq/L (3.5-5.1); Sodium 141 mEq/L (136-145); eGFR For African Americans > 60 (> 60); eGFR For Non-African Americans > 60 (> 60)
[2022-03-23 07:38] VITALS: TEMP 98
[2022-03-23] MEDS: Piperacillin/Tazobactam 3.375 GM in 0.9 % Sodium Chloride Mini Bag 100 ML IVPB SCH (07:42)
[2022-03-23] MEDS: Magnesium Oxide 400 MG TABLET PO SCH (07:45)
[2022-03-23 11:23] VITALS: BP 121/87; PULSE 86; O2SAT 96
== END 2022-03-23 13:18 | disposition home or self-care (01) ==
LOC: EMEROOARM 20:05 → 4WAOSI 20:05 → SUATTDRO 03-22 02:18 → 4WAOSI 03-22 02:39
PROVIDERS: ADMIT Internal Medicine; ATTEND Internal Medicine